=== PATIENT | female | born 1990 | race Caucasian/White ===

== ENCOUNTER 2019-06-06 10:29 | Inpatient (IN) | payer SELFPAY ==
[~2019-06-06] VITALS: Ht 152.4 cm; Wt 73.9 kg
[2019-06-06] MEDS ORDERED: SULF1TAB48 PO (10:45)
[2019-06-06] MEDS ORDERED: ACETAMINOPHEN 325MG TABLET PO STA (11:04)
[2019-06-06] MEDS ORDERED: MORPHINE SULFATE 4 MG/ML CPJ (NOT FOR IM USE) IV ONE (11:15)
[2019-06-06] MEDS ORDERED: ONDANSETRON HCL 4MG/2ML INJ IV ONE (11:15)
[2019-06-06] MEDS ORDERED: SODIUM CHLORIDE 0.9% 1000ML BAG (SEPSIS BOLUS) IV ONE (11:15)
[2019-06-06 11:43] LABS: BASOPHILS % 0.1 % (0.0-2.0); EOSINOPHILS % 0.4 % (0.0-5.0); HEMATOCRIT. 24.2 % (36.0-48.0); HEMOGLOBIN. 7.8 g/dL (12.0-16.0); LYMPHOCYTES % 12.7 % (20.0-50.0); MEAN CORPUSCULAR HEMOGLOBIN 24.9 pg (28.0-32.0); MEAN CORPUSCULAR VOLUME 77.6 fL (81.0-99.0); MEAN PLATELET VOLUME 7.5 fl (7.4-10.4); MONOCYTES % 4.1 % (2.0-8.0); NEUTROPHILS % 82.7 % (40.0-76.0); PLATELET 307 x1000/uL (130-400); RED BLOOD CELL COUNT 3.12 mill/uL (4.2-5.4); RED CELL DISTRIBUTION WIDTH 14.4 % (11.6-14.6)
[2019-06-06 11:48] LABS: PROTHROMBIN TIME 10.6 sec (9.6-11.0)
[2019-06-06 11:52] LABS: CHLORIDE 105 mEq/L (98-107)
[2019-06-06 11:52] LABS: HCG SCREEN NEGATIVE
[2019-06-06 11:57] LABS: ETHANOL BLOOD < 10 mg/dL
[2019-06-06] MEDS ORDERED: DIATR MEGLU/DIATRIZOATE SOLN 120ML ONE (12:07)
[2019-06-06 12:43] LABS: CLARITY URINE TURBID (CLEAR); COLOR URINE RED (YELLOW); KETONES URINE NEGATIVE (NEGATIVE); LEUKOCYTE ESTERASE URINE 3+ (NEGATIVE); NITRITE URINE NEGATIVE (NEGATIVE); OCCULT BLOOD URINE 2+ (NEGATIVE); PROTEIN URINE 2+ (NEGATIVE); SPECIFIC GRAVITY URINE 1.017 (1.005-1.030); UROBILINOGEN URINE 0.2 E.U./dL (0.2-1.0)
[2019-06-06 12:58] LABS: *AMPHETAMINES SCREEN URINE NEGATIVE (NEGATIVE)
[2019-06-06 12:59] LABS: *BARBITURATES SCREEN URINE NEGATIVE (NEGATIVE); *BENZODIAZEPINES SCREEN URINE NEGATIVE (NEGATIVE); *COCAINE SCREEN URINE NEGATIVE (NEGATIVE); METHADONE URINE SCREEN NEGATIVE (NEGATIVE); OPIATES URINE SCREEN NEGATIVE (NEGATIVE); PHENCYCLIDINE URINE SCREEN NEGATIVE (NEGATIVE)
[2019-06-06 13:00] LABS: CANNABINOID URINE SCREEN NEGATIVE (NEGATIVE)
[2019-06-06] MEDS ORDERED: LEVOFLOXACIN 500MG PREMIX 100 ML IV ONE (13:00)
[2019-06-06] MEDS ORDERED: CEFTRIAXONE 1 G PREMIX 50 ML IV ONE (13:00)
[2019-06-06 16:45] VITALS: BP 104/52
[2019-06-06 16:46] VITALS: BP 104/52
[2019-06-06] MEDS ORDERED: DOCUSATE SODIUM 100MG CAPSULE PO PRN (17:00)
[2019-06-06] MEDS ORDERED: HYDROCODONE/ACETAMINOPHEN 5/325MG TABLET PO PRN (17:00)
[2019-06-06] MEDS ORDERED: CLONIDINE 0.1MG TABLET PO PRN (17:00)
[2019-06-06] MEDS ORDERED: MORPHINE SULFATE 2 MG/ML CPJ (NOT FOR IM USE) IV PRN (17:00)
[2019-06-06] MEDS ORDERED: ONDANSETRON HCL 4MG/2ML INJ IV PRN (17:00)
[2019-06-06] MEDS: SODIUM CHLORIDE 0.9% 1,000 ML IV SCH (17:26)
[2019-06-06] MEDS: ACETAMINOPHEN 325MG TABLET PO PRN (17:35)
[2019-06-06 20:00] VITALS: BP 104/49
[2019-06-07] VITALS: BP 109/54
[2019-06-07] MEDS: ACETAMINOPHEN 325MG TABLET PO PRN (00:23)
[2019-06-07] MEDS: SODIUM CHLORIDE 0.9% 1,000 ML IV SCH ×2 (03:28→23:30)
[2019-06-07 04:00] VITALS: BP 110/70
[2019-06-07 07:02] LABS: CHLORIDE 108 mEq/L (98-107)
[2019-06-07 07:17] LABS: BASOPHILS % 0.1 % (0.0-2.0); EOSINOPHILS % 0.3 % (0.0-5.0); HEMATOCRIT. 21.8 % (36.0-48.0); HEMOGLOBIN. 7.1 g/dL (12.0-16.0); LYMPHOCYTES % 16.3 % (20.0-50.0); MEAN CORPUSCULAR HEMOGLOBIN 24.9 pg (28.0-32.0); MEAN CORPUSCULAR VOLUME 76.9 fL (81.0-99.0); MEAN PLATELET VOLUME 7.8 fl (7.4-10.4); MONOCYTES % 3.8 % (2.0-8.0); NEUTROPHILS % 79.5 % (40.0-76.0); PLATELET 272 x1000/uL (130-400); RED BLOOD CELL COUNT 2.83 mill/uL (4.2-5.4); RED CELL DISTRIBUTION WIDTH 14.6 % (11.6-14.6)
[2019-06-07 08:00] VITALS: BP 110/72
[2019-06-07 10:42] LABS: TOTAL IRON BINDING CAPACITY 382 ug/dL (250-450)
[2019-06-07] MEDS: LEVOFLOXACIN 500MG PREMIX 100 ML IV SCH (11:44)
[2019-06-07] MEDS: FERROUS SULFATE 325MG TABLET PO SCH ×2 (11:51→16:50)
[2019-06-07 12:00] VITALS: BP 102/54
[2019-06-07 16:00] VITALS: BP 110/66
[2019-06-07 20:00] VITALS: BP 96/49
[2019-06-08] VITALS (8 sets, daily range): BP systolic 92–109; BP diastolic 50–66
[2019-06-08 06:56] LABS: CHLORIDE 107 mEq/L (98-107)
[2019-06-08 07:12] LABS: BASOPHILS % 0.2 % (0.0-2.0); EOSINOPHILS % 0.6 % (0.0-5.0); HEMATOCRIT. 21.4 % (36.0-48.0); LYMPHOCYTES % 20.6 % (20.0-50.0); MEAN CORPUSCULAR HEMOGLOBIN 24.2 pg (28.0-32.0); MEAN CORPUSCULAR VOLUME 76.7 fL (81.0-99.0); MEAN PLATELET VOLUME 7.5 fl (7.4-10.4); MONOCYTES % 4.7 % (2.0-8.0); NEUTROPHILS % 73.9 % (40.0-76.0); PLATELET 284 x1000/uL (130-400); RED BLOOD CELL COUNT 2.79 mill/uL (4.2-5.4); RED CELL DISTRIBUTION WIDTH 14.5 % (11.6-14.6)
[2019-06-08 07:57] LABS: HEMOGLOBIN. 6.8 g/dL (12.0-16.0)
[2019-06-08] MEDS: FERROUS SULFATE 325MG TABLET PO SCH ×3 (10:07→20:28)
[2019-06-08] MEDS: SODIUM CHLORIDE 0.9% 1,000 ML IV SCH ×2 (10:08→19:30)
[2019-06-08] MEDS: LEVOFLOXACIN 500MG PREMIX 100 ML IV SCH (10:12)
[2019-06-08 17:54] LABS: HEMATOCRIT 25.4 % (36.0-48.0); HEMOGLOBIN 8.3 g/dL (12.0-16.0)
[2019-06-09] MEDS ORDERED: LEVOFLOXACIN 500MG TABLET PO SCH (11:00)
== END 2019-06-08 21:48 | disposition home or self-care (01) | DRG 463 ==
LOC: ER 10:29 → 6EST 13:29 → EDBEDREQ 13:54 → ENRESERV 15:34
PROVIDERS: ADMIT Hospitalist; ATTEND Hospitalist
PROC: 30233N1 Transfusion of Nonautologous Red Blood Cells into Peripheral Vein, Percutaneous Approach (ICD-10-PCS; principal; 2019-06-08)
DX: N39.0 Urinary tract infection, site not specified (principal); D63.8 Anemia in other chronic diseases classified elsewhere; Z98.891 History of uterine scar from previous surgery
CPT/HCPCS: 36415; 71045; 74176; 76705; 80053; 80305; 80320; 81003; 83540; 83550; 83605; 84145; 84703; 85014; 85018; 85025; 86850; 86900; 86920; 93005; 93970; 99291; J0696; J1956; J2270; J2405; J7030; P9016; Q9963; G0480